=== PATIENT | female | born 1995 | race Caucasian/White ===

== ENCOUNTER 2022-08-02 15:52 | Emergency (ER) | payer OTHER ==
[2022-08-02] MEDS ORDERED: SODIUM CHLORIDE 0.9% 1,000 ML IV STA (18:10)
[2022-08-02] MEDS ORDERED: PROMETHAZINE INJ 25 MG in SODIUM CHLORIDE 0.9% 50 ML IV STA (18:11)
[2022-08-02] MEDS ORDERED: HYDROmorphone 0.5 MG/0.5 ML SYRINGE IVP STA (18:11)
--- NOTE | 2022-08-02 18:15 | ED Physician Documentation ---
History of Present Illness - Stated complaint Stated Complaint: H/A - Chief complaint Chief Complaint: Neuro - History obtained from History obtained from: Patient - Additonal information Additional information: The patient comes to the emergency department for chief complaint of right-sided headache that has been recurrent over the last couple of weeks. She is 32 weeks and states that she has not had any issues with elevated blood pressure. She was seen by her OB in [place] yesterday and evaluated for possible preeclampsia and states that it was ruled out. The patient denies any history of migraine headaches. She has not had any fevers or chills, but has had some aches and almost feels as though she is "coming down with something". She denies any shortness of breath or cough. The patient states that her has gone well so far. Patient states that she has been able to feel the baby moving today. The patient denies nausea or vomiting. Review of Systems Ten Systems: 10 systems reviewed and negative Constitutional: reports: Reviewed and negative Eyes: reports: Reviewed and negative Ears: reports: Reviewed and negative Nose: reports: Reviewed and negative Throat: reports: Reviewed and negative Cardiac: reports: Reviewed and negative Respiratory: reports: Reviewed and negative GI: reports: Reviewed and negative : reports: Reviewed and negative Skin: reports: Reviewed and negative Musculoskeletal: reports: Reviewed and negative Neurologic: reports: Headache Psychiatric: reports: Reviewed and negative Endocrine: reports: Reviewed and negative Immunocompromised: reports: Reviewed and negative PD PAST MEDICAL HISTORY - Present Medications Home Medications: Ambulatory Orders Medication Instructions Recorded Confirmed No Known Home Medications 08/02/22 08/02/22 - Allergies Allergies/Adverse Reactions: Allergies Allergy/AdvReac Type Severity Reaction Status Date / Time No Known Drug Allergies Allergy Verified 08/02/22 16:16 PD ED PE NORMAL - Vitals Vital signs reviewed: Yes - General General: Alert and oriented X 3, No acute distress, Well developed/nourished - HEENT HEENT: Atraumatic, PERRL, EOMI, Moist mucous membranes - Neck Neck: Supple, no meningeal sign, No bony TTP - Cardiac Cardiac: RRR, No murmur, Strong equal pulses - Respiratory Respiratory: No respiratory distress, Clear bilaterally - Abdomen Abdomen: Soft, Non tender, Other (Gravid, movement palpable.) - Derm Derm: Normal color, Warm and dry, No rash - Extremities Extremities: No deformity - Neuro Neuro: Alert and oriented X 3 - Psych Psych: Normal mood, Normal affect Results - Vitals Vitals: Vital Signs - 24 hr 08/02/22 08/02/22 08/02/22 16:11 16:16 18:16 Temperature 36.3 C L 36.5 C 36.5 C Heart Rate 78 78 76 Respiratory 14 14 14 Rate Blood Pressure 112/61 112/61 112/60 O2 Saturation 98 98 98 Oxygen O2 Source Room air - Labs Labs: Laboratory Tests 08/02/22 18:11 Sodium 136 Potassium 3.9 Chloride 101 Carbon Dioxide 25 Anion Gap 10.0 BUN 8 Creatinine 0.7 Estimated GFR (MDRD) 100 Glucose 129 H Calcium 8.8 Total Bilirubin 0.2 AST 19 ALT 16 Alkaline Phosphatase 69 Total Protein 6.3 L Albumin 2.3 L Globulin 4.0 Albumin/Globulin Ratio 0.6 L Lipase 33 PD MEDICAL DECISION MAKING - ED course Complexity details: reviewed results, re-evaluated patient, considered differential, d/w patient ED course: Dr. Yepez of OB had spoken with nursing staff and requested that the patient have a CMP done to look for at LFTs, and that after we are finished treating the patient here, that the patient be sent to OB for monitoring. Her blood pressure was normal here. Patient overall is fairly well-appearing, but did feel that she was dehydrated and could benefit from some IV fluids, And requested IV. IV was placed and patient was given a liter of 0.9 normal saline, as well as 0.5 mg of Dilaudid and 25 mg of Phenergan IV. The pt was found to be feeling better after treatment, and was deemed stable for transfer to L&D for monitoring. Departure - Departure Disposition: 01 Home, Self Care Clinical Impression: Migraine headache Qualifiers: Migraine type: unspecified Status migrainosus presence: without status migrainosus Intractability: not intractable Qualified Code(s): G43.909 - Migraine, unspecified, not intractable, without status migrainosus Condition: Stable Instructions: ED Headache Migraine Comments: You have been treated in the emergency department for your headache today. Your laboratory studies and blood pressure look good. Our OB on-call has requested that you have your baby evaluated in labor and delivery after you are done here in the emergency department. If everything looks good, then you should plan to follow-up with your OB specialist as scheduled. Discharge Date/Time: 08/02/22 20:25
[2022-08-02 18:28] LABS: ALBUMIN 2.3 g/dL (3.2-5.5); ALBUMIN/GLOBULIN RATIO 0.6 (1.0-2.2); BILIRUBIN,TOTAL 0.2 mg/dL (0.2-1.0); CALCIUM 8.8 mg/dL (8.5-10.3); CREATININE 0.7 mg/dL (0.4-1.0); POTASSIUM 3.9 mmol/L (3.5-5.0); TOTAL PROTEIN 6.3 g/dL (6.7-8.2)
[2022-08-02 18:30] VITALS: BP 112/60
== END 2022-08-02 20:25 | disposition home or self-care (01) ==
LOC: ED 15:52 → FBP 20:15 → ED 20:25
DX: O99.891 Other specified diseases and conditions complicating pregnancy (principal); E86.0 Dehydration; G43.909 Migraine, unspecified, not intractable, without status migrainosus; Z3A.32 32 weeks gestation of pregnancy
CPT/HCPCS: 36415; 80053; 83690; 96365; 96375; 99282; 99284; J1170; J7040